=== PATIENT | female | born 1955 | race Two or more races ===

== ENCOUNTER 2018-02-27 07:32 | Outpatient (CLI) | payer OTHER | END 2018-02-27 07:37 | disposition home or self-care (01) | LOC: RAD 07:32 | DX: M12.9 Arthropathy, unspecified (principal); M19.90 Unspecified osteoarthritis, unspecified site ==

== ENCOUNTER 2018-08-10 09:39 | Outpatient (CLI) | payer OTHER | END 2018-08-10 09:48 | disposition home or self-care (01) | LOC: NUCLEAR 09:39 | DX: I10 Essential (primary) hypertension (principal); R07.9 Chest pain, unspecified; I20.9 Angina pectoris, unspecified ==